=== PATIENT | female | born 1955 | race Caucasian/White ===

== ENCOUNTER → 2016-03-26 | Day surgery (SDC) | payer OTHER ==
[~2016-03-26] VITALS: Ht 154.9 cm; Wt 78.0 kg
[~2016-03-26] MED LIST: ATORVASTATIN CA40 M1 PO; METFORMIN HCL500 M3 PO
--- NOTE | 2016-03-26 09:59 | MAMMOGRAPHY REPORT ---
EXAMINATION: MM GUIDED NEEDLE LOCALIZATION BREAST, LEFT CLINICAL INFORMATION: Preoperative localization of left breast invasive lobular carcinoma. COMPARISON: MRI scan dated 03/03/2016. Mammogram and ultrasound dated 02/03/2016. TECHNIQUE NEEDLE LOC: Proper informed consent is obtained from the patient after discussion of the procedure, potential risks and complications, and alternatives including declining the procedure today. Patient was given an opportunity for questions. The patient appeared to understand. The patient consented to the procedure and signed the consent form. GUIDANCE: Digital mammography. APPROACH: Lateral. TARGET: Biopsy clip in the upper outer quadrant of the left breast. ANESTHESIA: 10 mL Xylocaine 2%. LOCALIZATION MARKER: ItsGoinOn 7 cm needle localization system. The skin was prepped and local anesthesia administered. The needle was positioned and position assessed with mammography. The wire was hooked into position. The patient tolerated the procedure well and had no immediate complication. Diagram was marked for the surgeon. The target is a biopsy clip in the upper outer quadrant of the left breast, 5.5 cm cm deep to the skin with 11.5 cm of the wire remaining external to the skin. IMPRESSION: Status post left breast needle localization with wire hooked into position. The target is a biopsy clip in the upper outer quadrant of the left breast, 5.5 cm cm deep to the skin with 11.5 cm of the wire remaining external to the skin.
--- NOTE | 2016-03-26 13:03 | MAMMOGRAPHY REPORT ---
EXAMINATION: MM NEEDLE LOCALIZATION SPECIMEN FROM THE BREAST, LEFT CLINICAL INDICATION: Evaluation of lumpectomy specimen of left breast invasive lobular carcinoma. COMPARISON: Needle localization films from earlier today. TECHNIQUE: Single specimen radiograph was obtained. FINDINGS: The radiograph of the excised surgical specimen shows that the hookwire is delivered intact and the marker clip and calcifications and associated architectural distortion are identified in the specimen. IMPRESSION: Satisfactory excision of the targeted lesion. These findings were communicated to the surgeon in the OR at the time of specimen radiography (03/26/2016, 10:48 AM).
--- NOTE | 2016-03-26 13:19 | Operative Report ---
Operative/Inv Procedure Report Surgery Date: 03/26/16 Name of Procedure: Left partial mastectomy with wire localization and sentinel lymph node biopsy Pre-Operative Diagnosis: Left breast cancer Post-Operative Diagnosis: Same Estimated Blood Loss: less than 50ml Surgeon/Glue Clamp Operator: DAYAN VANG MD Anesthesia: laryngeal mask airway Specimens: Left lumpectomy, cranial margin, caudal margin, medial margin, lateral margin, skin margin, deep margin. [place] lymph node 1. Operative/Procedure Note Note: Patient brought to the operating room on 03/26/2016 after preoperative wire localization and lymphoscintigraphy were performed the films reviewed. She was given 600 mg clindamycin and laryngeal mask airway anesthesia was administered. The left breast prepped and draped in a sterile fashion using ChloraPrep. 3 mL of methylene blue was diluted with 2 mL saline was injected in the retroareolar fashion. Local anesthesia of Marcaine Was Given. The Axilla Was Approached First. A Transverse Incision Was Made in the Axilla Was Entered. A Single Hot, Blue Lymph Node Was Identified and Marked As [place] Lymph Node 1. No Other Hot, Blue, or Palpable Lymph Nodes Were Identified in the Axilla. Deep Tissue Was Proximal Made Using Interrupted Vicryl Sutures, and Skin Was Closed Using Running Biosyn Subcuticular Stitch. The breast was then approached. A curvilinear incision was made and the wire was brought to the incision. There concern was grasped using an Allis clamp and dissected widely. The specimen was removed and marked for orientation using margin map. Intraoperative x-ray confirmed the presence of the clip in the specimen. Additional margins were taken and marked with a suture at the true margin. Hemostasis was adequate. Mammary clips were used to alex the margins a lumpectomy cavity. Deep tissue was proximal made using interrupted Vicryl sutures, and the skin was closed using running Biosyn subcuticular stitch. Steri-Strips and sterile dressings were applied and patient transferred to the recovery room in satisfactory condition having tolerated the procedure well.
== END ==
LOC: STS 04:15 → CBW.IIU 08:00 → CBW.MAMMO 08:30
DX: C50.912 Malignant neoplasm of unspecified site of left female breast (principal); E11.9 Type 2 diabetes mellitus without complications; Z79.84 Long term (current) use of oral hypoglycemic drugs; I10 Essential (primary) hypertension
CPT/HCPCS: 88305; 88307; A9520; J0131; J1885; J2001; J2250; J2405

== ENCOUNTER → 2016-04-16 | Day surgery (SDC) | payer OTHER ==
[~2016-04-16] VITALS: Ht 154.9 cm; Wt 77.1 kg
--- NOTE | 2016-04-16 13:38 | Operative Report ---
Operative/Inv Procedure Report Surgery Date: 04/16/16 Name of Procedure: Reexcision left lumpectomy Pre-Operative Diagnosis: Left breast cancer with positive margins Post-Operative Diagnosis: Same Estimated Blood Loss: less than 50ml Surgeon/Upholstery Trimmer: DAYAN VANG MD Anesthesia: local monitored anesthesi Specimens: Medial margin, cranial margin, caudal margin, anterior margin Operative Indication: Patient underwent a left lumpectomy and sentinel node biopsy for a left breast cancer. The medial margin was positive and anterior, cranial and caudal margins were close Operative/Procedure Note Note: Patient is brought to the operating room on 04/16/2016 for reexcision left lumpectomy. She was given 600 mg of clindamycin in the left breast was prepped and draped in a sterile fashion. The previous incision was approached. Local anesthesia of 1% lidocaine mixed half percent Marcaine was given. The incision was reopened and seroma cavity was entered. Weighted retractor was used to identify the very medial portion of the wound. The medial margin of the lumpectomy that was excised in its entirety and marked with a suture at the true margin. Cranial and caudal margins were excised similarly. There was a portion of the anterior margin that was not subcutaneous tissue and that was excised. The remaining anterior margin as subcutaneous tissue. The deep tissue was then approximated using interrupted Vicryl sutures, and the skin was closed using a running BioSorb subcutaneous color stitch. Steri-Strips and sterile dressings were applied and the patient was transferred to the recovery room in satisfactory condition having tolerated the procedure well.
== END ==
LOC: STS 02:46
DX: C50.912 Malignant neoplasm of unspecified site of left female breast (principal); E11.9 Type 2 diabetes mellitus without complications; Z79.84 Long term (current) use of oral hypoglycemic drugs; I10 Essential (primary) hypertension
CPT/HCPCS: 88305; J0131; J1885; J2250; J2405